=== PATIENT | female | born 1970 ===

== ENCOUNTER 2024-04-24 08:17 | Emergency (ER) | payer OTHER ==
[~2024-04-24] VITALS: Ht 177.8 cm; Wt 74.4 kg
[2024-04-24] MEDS ORDERED: MORP15ER PO (08:27)
[2024-04-24] MEDS ORDERED: TRAZ50 PO (08:27)
[2024-04-24] MEDS ORDERED: NS 1,000 ML IV ONE (08:30)
[2024-04-24] MEDS ORDERED: propofoL 20 ML IV SCH (08:30)
[2024-04-24] MEDS ORDERED: NS 1,000 ML IV SCH (09:05)
[2024-04-24] MEDS ORDERED: FentaNYL Citrate 50 MCG/ML 2 ML Injection IV PRN (09:10)
[2024-04-24] MEDS ORDERED: MEDR5 PO (10:24)
[2024-04-24] MEDS ORDERED: LOSA50 PO (10:25)
[2024-04-24] MEDS ORDERED: NARCAN4 M1 (10:25)
[2024-04-24] MEDS ORDERED: LEVSOD25 PO (10:25)
[2024-04-24] MEDS ORDERED: OZEMPIC2 MG/0.75 (10:25)
[2024-04-24] MEDS ORDERED: ATOR80 PO (10:25)
[2024-04-24] MEDS ORDERED: BUPROPION HCL200 M2 PO (10:26)
[2024-04-24] MEDS ORDERED: ESTRADIOL PO (10:28)
[2024-04-24] MEDS ORDERED: ATEN25 PO (10:28)
[2024-04-24] MEDS ORDERED: METF500 PO (10:29)
[2024-04-24] MEDS ORDERED: VENL75ER PO (10:29)
[2024-04-24] MEDS ORDERED: DYAZIDE 37.5-21 EACH (10:31)
[2024-04-24] MEDS ORDERED: Percocet 5-3251 EACH PO (12:16)
== END 2024-04-24 12:41 | disposition home or self-care (01) ==
LOC: ER 08:17
DX: S82.854A Nondisplaced trimalleolar fracture of right lower leg, initial encounter for closed fracture (principal); M97.21XA Periprosthetic fracture around internal prosthetic right ankle joint, initial encounter; I10 Essential (primary) hypertension; E78.5 Hyperlipidemia, unspecified; Z88.6 Allergy status to analgesic agent; Z88.8 Allergy status to other drugs, medicaments and biological substances; Z88.5 Allergy status to narcotic agent; Z79.891 Long term (current) use of opiate analgesic; Z79.899 Other long term (current) drug therapy; W01.0XXA Fall on same level from slipping, tripping and stumbling without subsequent striking against object, initial encounter; Y93.01 Activity, walking, marching and hiking
CPT/HCPCS: 27818; 73600; 73701; 96374-59; 96376-59; 99284-25; J2704; J3010; J7030; Q9967